=== PATIENT | female | born 1950 | race Caucasian/White ===

== ENCOUNTER 2017-11-19 21:48 | Inpatient (IN) | payer MEDICARE, OTHER ==
[2017-11-19 22:18] VITALS: BP 118/65
[2017-11-19] MEDS ORDERED: Maalox 30 mL Cup PO PRN (22:25)
[2017-11-19] MEDS ORDERED: Magnesium Hydroxide (MOM) 30 mL UDC PO PRN (22:25)
[2017-11-20] MEDS: Multivitamin Tab PO SCH (09:27)
[2017-11-20] MEDS: Dextromethorphan/Quinidine 20mg/10mg Cap PO SCH ×2 (09:27→16:15)
--- NOTE | 2017-11-20 12:14 | History & Physical ---
ADMIT DATE: 11/20/2017 PATIENT'S IDENTIFICATION: A 67-year-old female. REQUESTING PHYSICIAN: Juan José Bullard M.D., M.P.H. PRESENTING COMPLAINT: "I would like to be left alone." HISTORY SOURCE: Reviewing the chart, talking to the staff, as well as the patient's provided limited history. HISTORY OF PRESENT ILLNESS: A 67-year-old Turkish female with a longstanding history of depression, psychotic disorder, questionable dementia, resides at [facility], admitted at [facility] for altered mental status and poor p.o. intake where the patient was treated and the patient was evaluated by psychiatrist, the patient needed to have Geriatric Psychiatric Care. The patient is transferred to [facility] for further care for her psychotic illness. PAST MEDICAL HISTORY: Remarkable for: 1. Dementia. 2. DJD. 3. Anxiety, depression. 4. Questionable thyroid disease. MEDICATIONS AT HOME: The patient is taking Nuedexta, Colace, Aricept, ibuprofen, Remeron, Zyprexa, trazodone. ALLERGIES: The patient is not allergic to medication. 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 The patient denies any smoking cigarette, alcohol, or drug use. FAMILY MEDICAL HISTORY: Unremarkable for diabetes, hypertension, kidney disease. REVIEW OF SYSTEMS: The patient currently denies any chest pain, shortness of breath, palpitation, dizziness, nausea, vomiting, diarrhea, dysuria, hematuria, hematochezia, melena. No seizure or syncopal episode. No weight loss or weight gain. PHYSICAL EXAMINATION: GENERAL: The patient is a 67-year-old alert, awake, lying in the bed without any acute distress. VITAL SIGNS: Temperature 98, pulse is 74, respiratory rate 18, blood pressure 136/80. SKIN: Warm to touch. HEENT: Normocephalic, atraumatic. Extraocular muscles are intact. Tongue was pink and coated. Poor dentition noted. NECK: Supple, no JVD. No hepatojugular reflex. No lymphadenopathy, thyromegaly, or carotid bruit. HEART: Both heart sounds are regular. No S3, no S4, no murmur. CHEST AND LUNGS: Equal in expansion, no wheezing, no crackles. ABDOMEN: Soft. No guarding or rigidity. Liver and spleen palpable. No palpable mass. EXTREMITIES: No edema, no cyanosis. Good peripheral +1. No calf tenderness noted. NEUROLOGIC: Alert, awake, follows commands. Moving upper and lower extremity without difficulty, though the patient is very uncooperative to do complete neurological examination. AVAILABLE DIAGNOSTIC DATA: Performed has been reviewed at [facility]. CLINICAL IMPRESSIONS: 1. Anxiety, depression. 2. Dementia. 3. Questionable thyroid disease. 4. Degenerative joint disease. 5. History of recently treated for urinary tract infection. PLAN: 1. Psychotic evaluation and management defer to psychiatrist. 2. Recheck free T4, T3, TSH for evaluation of thyroid disorder and treat her accordingly. Continue other medication as prescribed. We will continue to follow this patient during the stay in the hospital. The patient will be provided fall precautions, general nursing care as well. I had discussed with care plan with assigned nurse as well. JOB# [id number]
--- NOTE | 2017-11-21 00:39 | Psychosocial Evaluation ---
DATE OF SERVICE: 11/20/2017 PSYCHIATRIC INITIAL EVALUATION AND MENTAL STATUS EXAM AGE: 67. SEX: Female. PHYSICIAN: Dr. Bullard. CHIEF COMPLAINT: 5150 hold for grave disability. HISTORY OF PRESENT ILLNESS: The patient was placed on 5150 hold in [facility]. The patient has history of schizoaffective disorder and the patient was evaluated in [facility] because of inability to care for herself. The patient is psychotic and paranoid and patient feels that there are bugs all over her body and she is unable to formulate any safe plan for herself care. Chart reviewed and patient interviewed and discussed the patient's condition with the staff and reviewed records and labs. The patient currently seems to be slightly sedated and sleepy since she was agitated earlier and had to be medicated. The patient was in irritable and angry mood and she was not able to care for herself or to provide any safe plan for her self-care. She feels that there are bugs all over her body. The patient was supposed to be on Zyprexa and trazodone but is questionable if the patient was compliant with taking her medications. PAST PSYCHIATRIC HISTORY: The patient has history of schizoaffective disorder. PAST MEDICAL HISTORY: The patient has no major medical problems. FAMILY PSYCHIATRIC HISTORY: Noncontributory. SOCIAL HISTORY: The patient has no history of alcohol or street drug use. No known legal issues or abuse issues. ALLERGIES: No known allergies. MENTAL STATUS EXAMINATION: The patient appears slightly older than her stated age. Sedated and sleepy most of the interview. The patient could not answer any of my questions because of being sedated and sleepy at the time. She did not answer question regarding hallucinations or delusions or suicide or homicide. The patient is sedated and unable to assess orientation or memory at this time because of her sedation and unable to complete mental status exam. ASSESSMENT: PRIMARY DIAGNOSES: Schizoaffective disorder, bipolar type, severe, with psychotic features. SECONDARY DIAGNOSIS: Rule out dementia, moderate. With psychotic features. TREATMENT PLAN: We will continue Zyprexa and trazodone same dose. We will monitor her behavior closely. We worked on her irritability and agitation. ESTIMATED LENGTH OF STAY: 5-7 days. THE PATIENT'S STRENGTHS AND WEAKNESSES: The patient's strength is not clear at this time. Weaknesses: Her ineffective coping. AFTER DISCHARGE PLAN: Outpatient treatments and followup will continue as an outpatient. CRITERIA FOR DISCHARGE: The patient will not be agitated or psychotic and will stabilize psychotropic medications and will establish outpatient treatment plans. [facility]# [id number]
[2017-11-21] MEDS: Multivitamin Tab PO SCH (08:22)
[2017-11-21] MEDS: Dextromethorphan/Quinidine 20mg/10mg Cap PO SCH ×2 (08:22→16:49)
[2017-11-22] MEDS: Dextromethorphan/Quinidine 20mg/10mg Cap PO SCH ×2 (09:48→17:13)
[2017-11-22] MEDS: Multivitamin Tab PO SCH (09:48)
--- NOTE | 2017-11-22 19:47 | Progress Notes ---
DATE: SUBJECTIVE: Chart reviewed and the patient interviewed. Also discussed the patient's condition with the staff and reviewed records and labs. The patient continued to be paranoid and she is still in a depressed mood. The patient also is still withdrawn. The patient is paranoid and afraid to go to her room. The patient also is forgetful and she still needs lots of redirections. Otherwise, the patient is compliant with taking her medications with no side effects of medications. Otherwise, the patient is refusing to take her and medications. ASSESSMENT: The patient is still confused and psychotic. TREATMENT PLAN: Encourage the patient to take her psychotropic medications, which are Zyprexa, trazodone, and Remeron. Also, encouraged the patient to interact more and at the same time, continue to monitor her behavior and her condition closely and continue to follow up. JOB# [id number]
--- NOTE | 2017-11-23 05:16 | Progress Notes ---
DATE: 11/22/2017 Chart reviewed and the patient interviewed. Also discussed the patient's condition with the staff and reviewed records and labs. The patient continued to be in a depressed mood and she is still paranoid. The patient also is fearful and she is still according to staff did not want to go to the room because of paranoia and fear but at the same time, the patient is slightly easier to redirect her. The patient today seems to be slightly sleepy, although she did not take her medications and refused to take her medications because of her fear and paranoia. ASSESSMENT: The patient is still paranoid and fearful. TREATMENT PLAN: Continue monitoring her behavior and condition closely and continue to work on her compliance with medications . JOB# [id number]
[2017-11-23] MEDS: Multivitamin Tab PO SCH (08:18)
[2017-11-23] MEDS: Dextromethorphan/Quinidine 20mg/10mg Cap PO SCH ×2 (08:18→17:05)
--- NOTE | 2017-11-23 16:19 | General Progress Note ---
Subjective - Review of Systems Service Date: 11/23/17 Subjective: Patient seen and examined chart reviewed afebrile Objective - Physical Exam Vitals and I&O: Vital Signs Temp 98.9 F 11/23/17 15:40 Pulse 79 11/23/17 15:40 Resp 18 11/23/17 15:40 BP 130/81 11/23/17 15:40 Pulse Ox 94 11/23/17 15:40 Intake & Output 11/22/17 11/23/17 11/23/17 18:59 06:59 18:59 Intake Total 100 240 Balance 100 240 Intake: Oral 100 240 Other: # Voids 2 1 Active Medications: Current Medications Acetaminophen (Tylenol) 650 mg PO Q4HR PRN PRN Reason: Mild Pain / Temp above 100 Stop: 01/18/18 22:24 Al Hydrox/Mg Hydrox/Simethicone (Maalox) 30 ml PO Q4HR PRN PRN Reason: GI DISTRESS Stop: 01/18/18 22:24 Dextromethorphan/Quinidine (Nuedexta 20mg-10mg) 1 cap PO BID [facility] Stop: 01/19/18 08:59 Last Admin: 11/23/17 08:18 Dose: 1 cap Docusate Sodium (Colace) 100 mg PO DAILY [facility] Stop: 01/19/18 08:59 Last Admin: 11/23/17 08:18 Dose: 100 mg Donepezil HCl (Aricept) 10 mg PO HS [facility] Stop: 01/19/18 20:59 Last Admin: 11/22/17 20:32 Dose: Not Given Ibuprofen (Motrin) 600 mg PO TID PRN PRN Reason: Nicotine Craving Stop: 01/18/18 22:41 Lorazepam (Ativan) 0.5 mg PO Q4HR PRN; Protocol PRN Reason: Anxiety/agitation Stop: 12/19/17 22:24 Last Admin: 11/23/17 08:18 Dose: 0.5 mg Magnesium Hydroxide (Milk Of Magnesia) 30 ml PO HS PRN PRN Reason: Constipation Mirtazapine (Remeron) 15 mg PO HS [facility] PRN Reason: Protocol Stop: 01/19/18 20:59 Last Admin: 11/22/17 20:31 Dose: Not Given Multivitamins/Vitamin C (Theragran) 1 tab PO DAILY [facility] Stop: 01/19/18 08:59 Last Admin: 11/23/17 08:18 Dose: 1 tab Olanzapine (Zyprexa) 7.5 mg PO BID [facility] PRN Reason: Protocol Stop: 01/19/18 08:59 Last Admin: 11/23/17 08:19 Dose: 7.5 mg Trazodone HCl (Desyrel) 50 mg PO HS PRN; Protocol PRN Reason: Psychosis Stop: 01/18/18 22:41 Zolpidem Tartrate (Ambien) 5 mg PO HS PRN PRN Reason: Insomnia Stop: 01/18/18 22:24 Cardiovascular: Regular rate Lungs: Clear to auscultation Assessment/Plan - Assessment Assessment: Dementia DJD Insomnia Mental health disorder - Plan Plan: Continue current treatment Monitor vitals Ibuprofen Psych follow up Nutritional Asmnt/Malnutr-PDOC - Dietary Evaluation Malnutrition Findings (Please click <Entered> for more info): Nutritional Asmnt/Malnutrition Start: 11/23/17 09: 58 Text: Status: Complete Freq: Document 11/23/17 09:58 JOANNE (Rec: 11/23/17 10:02 JOANNE ROSARIO- FNS1) Nutritional Asmnt/Malnutrition Patient General Information Diagnosis Psychosis Pertinent Medical Hx/Surgical Hx dementia, DJD, anxiety, depression, thyroid disorder Subjective Information Pt asleep in bed at time of visit Current Diet Order/ Nutrition Support Cardiac Pertinent Medications Maalox, MOM, theragran Pertinent Labs no labs as of 11/23 @ 0900 Nutritional Hx/Data Height 1.7 m Height (Calculated Centimeters) 170.2 Current Weight (lbs) 61.235 kg Weight (Calculated Kilograms) 61.2 Weight (Calculated Grams) 49992.0 Body Mass Index (BMI) 21.1 Weight Status Approriate GI Symptoms GI Symptoms None Food Allergies No Cultural/Ethnic/Sikhism Belief None noted Usual diet at home 2g Na Skin Integrity/Comment: flaquito score 16 Current %PO Poor (25-49%) Estimated Nutritional Goals BEE in Kcals: Using Current wt Calories/Kcals/Kg 25-30kcals/kg Kcals Calculated 1525-1830kcals/day Protein: Using Current wt Protein g/kg/kg Protein Calculated 61g/day Fluid: ml per MD Nutritional Problem 1. Problem Problem No nutrition diagnosis at this time Intervention/Recommendation Comments Recommend continuing Cardiac Diet Expected Outcomes/Goals Expected Outcomes/Goals PO intake >75% of meals
[2017-11-24] MEDS: Dextromethorphan/Quinidine 20mg/10mg Cap PO SCH ×2 (09:29→18:00)
[2017-11-24] MEDS: Multivitamin Tab PO SCH (09:31)
--- NOTE | 2017-11-24 18:49 | General Progress Note ---
Subjective - Review of Systems Service Date: 11/24/17 Subjective: Patient seen and examined patient stated " I am dying help me" Objective - Physical Exam Vitals and I&O: Vital Signs Temp 97.3 F 11/24/17 06:43 Pulse 93 11/24/17 06:43 Resp 18 11/24/17 06:43 BP 136/85 11/24/17 06:43 Pulse Ox 97 11/24/17 06:43 Intake & Output 11/23/17 11/24/17 11/24/17 18:59 06:59 18:59 Intake Total 240 120 150 Balance 240 120 150 Intake: Oral 240 120 150 Other: # Voids 1 3 3 # Bowel Movements 0 Active Medications: Current Medications Acetaminophen (Tylenol) 650 mg PO Q4HR PRN PRN Reason: Mild Pain / Temp above 100 Stop: 01/18/18 22:24 Al Hydrox/Mg Hydrox/Simethicone (Maalox) 30 ml PO Q4HR PRN PRN Reason: GI DISTRESS Stop: 01/18/18 22:24 Dextromethorphan/Quinidine (Nuedexta 20mg-10mg) 1 cap PO BID [facility] Stop: 01/19/18 08:59 Last Admin: 11/24/17 18:00 Dose: Not Given Docusate Sodium (Colace) 100 mg PO DAILY [facility] Stop: 01/19/18 08:59 Last Admin: 11/24/17 09:29 Dose: Not Given Donepezil HCl (Aricept) 10 mg PO HS [facility] Stop: 01/19/18 20:59 Last Admin: 11/23/17 20:28 Dose: 10 mg Ibuprofen (Motrin) 600 mg PO TID PRN PRN Reason: Nicotine Craving Stop: 01/18/18 22:41 Lorazepam (Ativan) 0.5 mg PO Q4HR PRN; Protocol PRN Reason: Anxiety/agitation Stop: 12/19/17 22:24 Last Admin: 11/23/17 08:18 Dose: 0.5 mg Magnesium Hydroxide (Milk Of Magnesia) 30 ml PO HS PRN PRN Reason: Constipation Mirtazapine (Remeron) 15 mg PO HS [facility] PRN Reason: Protocol Stop: 01/19/18 20:59 Last Admin: 11/23/17 20:28 Dose: 15 mg Multivitamins/Vitamin C (Theragran) 1 tab PO DAILY [facility] Stop: 01/19/18 08:59 Last Admin: 11/24/17 09:31 Dose: Not Given Olanzapine (Zyprexa) 7.5 mg PO BID [facility] PRN Reason: Protocol Stop: 01/19/18 08:59 Last Admin: 11/24/17 18:00 Dose: Not Given Trazodone HCl (Desyrel) 50 mg PO HS PRN; Protocol PRN Reason: Psychosis Stop: 01/18/18 22:41 Zolpidem Tartrate (Ambien) 5 mg PO HS PRN PRN Reason: Insomnia Stop: 01/18/18 22:24 Cardiovascular: Regular rate Lungs: Clear to auscultation Assessment/Plan - Assessment Assessment: Dementia DJD Insomnia Mental health disorder - Plan Plan: Continue current treatment Monitor vitals Ibuprofen Skin care Nursing care Asp precaution Fall precaution Psych follow up Nutritional Asmnt/Malnutr-PDOC - Dietary Evaluation Malnutrition Findings (Please click <Entered> for more info): Nutritional Asmnt/Malnutrition Start: 11/23/17 09: 58 Text: Status: Complete Freq: Document 11/23/17 09:58 JOANNE (Rec: 11/23/17 10:02 JOANNE MARLENE- FNS1) Nutritional Asmnt/Malnutrition Patient General Information Diagnosis Psychosis Pertinent Medical Hx/Surgical Hx dementia, DJD, anxiety, depression, thyroid disorder Subjective Information Pt asleep in bed at time of visit Current Diet Order/ Nutrition Support Cardiac Pertinent Medications Maalox, MOM, theragran Pertinent Labs no labs as of 11/23 @ 0900 Nutritional Hx/Data Height 1.7 m Height (Calculated Centimeters) 170.2 Current Weight (lbs) 61.235 kg Weight (Calculated Kilograms) 61.2 Weight (Calculated Grams) 75977.0 Body Mass Index (BMI) 21.1 Weight Status Approriate GI Symptoms GI Symptoms None Food Allergies No Cultural/Ethnic/Adventist Belief None noted Usual diet at home 2g Na Skin Integrity/Comment: flaquito score 16 Current %PO Poor (25-49%) Estimated Nutritional Goals BEE in Kcals: Using Current wt Calories/Kcals/Kg 25-30kcals/kg Kcals Calculated 1525-1830kcals/day Protein: Using Current wt Protein g/kg/kg Protein Calculated 61g/day Fluid: ml per MD Nutritional Problem 1. Problem Problem No nutrition diagnosis at this time Intervention/Recommendation Comments Recommend continuing Cardiac Diet Expected Outcomes/Goals Expected Outcomes/Goals PO intake >75% of meals
--- NOTE | 2017-11-24 21:15 | Progress Notes ---
DATE: 11/23/2017 SUBJECTIVE: Chart reviewed and the patient interviewed. Also discussed the patient's condition with the staff and reviewed records and labs. The patient continued to be , depressed. The patient also is still withdrawn. She also continued episodes of yelling and screaming, asking for help, but she does not know what exactly she needs. Also, her affect is flat. The patient also still seems to be needing attention. Otherwise, the patient is compliant with taking her medications, but she is still confused. ASSESSMENT: The patient is still confused and psychotic. TREATMENT PLAN: Continue to monitor her behavior and her condition closely. Also, continue adjusting psychotropic medications and followup. JOB# [id number]
--- NOTE | 2017-11-25 | Progress Notes ---
DATE: 11/24/2017 SUBJECTIVE: Chart reviewed and the patient interviewed. Also, discussed the patient's condition with the staff and reviewed records and labs. The patient continued to be delusional and she is still anxious. She also is still in angry mood. The patient also is still resisting care and she has difficulty expressing herself. She continued asking for "help, help." Otherwise, the patient denies any side effects of medications. ASSESSMENT: The patient is still agitated and is still delusional. TREATMENT PLAN: Continue to monitor her behavior and condition closely. Also, continue adjusting psychotropic medications and followup. [facility]# [id number]
[2017-11-25] MEDS: Multivitamin Tab PO SCH (09:56)
[2017-11-25] MEDS: Dextromethorphan/Quinidine 20mg/10mg Cap PO SCH ×2 (09:56→17:40)
--- NOTE | 2017-11-26 05:27 | Progress Notes ---
DATE: PATIENT IDENTIFICATION: A 67-year-old female. CHIEF COMPLAINT: "I am fine and wants to go home." SUBJECTIVE: The patient denies any chest pain, short of breath, palpitation, dizziness. PHYSICAL EXAMINATION: VITAL SIGNS: Temperature 97.2, pulse is 82, respiratory rate is 18, blood pressure 140/77. HEENT: No facial asymmetry. NECK: Supple, no JVD. HEART: Regular. CHEST AND LUNG: Equal in expansion, no wheezing, no crackles. ABDOMEN: Soft. No guarding, no rigidity. Bowel sounds are present. No palpable mass. EXTREMITIES: No edema, no cyanosis. Diffuse osteoarthritic changes noted. NEUROLOGIC: Limited, but nonfocal. CLINICAL IMPRESSION: 1. Dementia. 2. Degenerative joint disease. 3. Psychotic disorder. 4. History of urinary tract infection. 5. High risk for fall. PLAN: 1. Psych medication. 2. General nursing care. 3. Nutritional support. 4. Symptoms management. 5. Medication management. 6. Fall precautions. 7. Care plan reviewed. 8. Recheck thyroid function tests. JOB# [id number]
[2017-11-26] MEDS: Dextromethorphan/Quinidine 20mg/10mg Cap PO SCH ×5 (08:49→17:15)
[2017-11-26] MEDS: Multivitamin Tab PO SCH ×3 (08:50→11:18)
[2017-11-26] MEDS: OLANZapine 5 mg Oral Disintegrating Tab PO SCH ×3 (08:51→17:16)
--- NOTE | 2017-11-26 19:02 | Progress Notes ---
DATE: 11/25/2017 SUBJECTIVE: Chart reviewed and the patient interviewed. Also discussed the patient's condition with the staff and reviewed records and labs. The patient is still having episodes of yelling out for help and she is still confused. The patient also is still depressed and she told staff that" want to ." She also refused to take her medications and she is attention seeking. She also is still agitated and needs redirections at times. ASSESSMENT: The patient is still psychotic. TREATMENT PLAN: We will continue monitoring behavior and condition closely. Also, continue adjusting psychotropic medications and followup. Also, case mgr still working on placement issue. JOB# [id number]
--- NOTE | 2017-11-27 00:56 | Progress Notes ---
DATE: 11/26/2017 SUBJECTIVE: Chart reviewed and the patient interviewed. Also discussed the patient's condition with the staff and reviewed records and labs. The patient is still severely depressed and confused. The patient also is still isolative and withdrawn and interacting minimally with others. The patient also is still restless and she still wants to be left alone and minimal interaction and difficulty expressing herself or her feelings. The patient also still has not been able to talk about her feelings or herself. She also is unable to provide any safe plan for self-care. The patient has no explanation of why she is refusing to take the medications. ASSESSMENT: We will change Zyprexa to Zyprexa Zydis in a dose of 5 mg twice a day. Also, we will continue to work on her irritability and what seems to be depression and resisting care. Hopefully, the patient will start to take her medications regularly. Also, working with case supervisor in regard to placement issue and discharge plans. JOB# [id number]
--- NOTE | 2017-11-27 05:05 | Progress Notes ---
DATE: IDENTIFICATION: A 67-year-old female. SUBJECTIVE: The patient was seen and examined. The patient has no new event. PHYSICAL EXAMINATION: VITAL SIGNS: Temperature 98, pulse is 74, respiratory rate is 18, blood pressure 130/80. HEENT: No facial asymmetry. Poor dentition. NECK: Supple, no JVD. HEART: Regular, no murmur. CHEST: Lung equal in expansion. LUNGS: No wheezing, no crackles. ABDOMEN: Soft. No guarding or rebound. EXTREMITIES: No edema. CLINICAL IMPRESSION: 1. Dementia. 2. Hypothyroidism. 3. Degenerative joint disease. 4. Psychotic disorder. 5. High risk for fall. PLAN: 1. Psych medication. 2. General nursing care. 3. Symptoms management. 4. Medication management. 5. Follow lab. 6. We will follow this patient during the stay on as needed basis. JOB# [id number]
[2017-11-27] MEDS: Dextromethorphan/Quinidine 20mg/10mg Cap PO SCH ×2 (08:28→16:14)
[2017-11-27] MEDS: OLANZapine 5 mg Oral Disintegrating Tab PO SCH ×2 (08:28→16:14)
[2017-11-27] MEDS: Multivitamin Tab PO SCH (08:28)
[2017-11-28] MEDS: OLANZapine 5 mg Oral Disintegrating Tab PO SCH ×2 (09:12→17:08)
[2017-11-28] MEDS: Dextromethorphan/Quinidine 20mg/10mg Cap PO SCH ×2 (09:12→17:09)
[2017-11-28] MEDS: Multivitamin Tab PO SCH (09:12)
--- NOTE | 2017-11-28 23:11 | Progress Notes ---
DATE: IDENTIFICATION: A 67-year-old male. SUBJECTIVE: The patient was seen and examined, still unable to get blood tests for the patient's evaluation of her underlying hypothyroidism. The patient continues to remain agitated at time. The patient's care plan has been reviewed. The patient's psychiatrist notes has been reviewed. Zyprexa dose has been adjusted as well for her irritability and resisting the care. PHYSICAL EXAMINATION: VITAL SIGNS: Temperature 97.9, pulse 83, respiratory 18, blood pressure 130/70. HEENT: No facial asymmetry. NECK: Supple, no JVD. HEART: Regular, no murmur. CHEST: Equal in expansion, no wheezing, no crackles. ABDOMEN: Soft. No guarding, no rigidity. Bowel sounds heard. No palpable mass. EXTREMITIES: No edema. NEUROLOGIC: Alert, awake, follows commands. CLINICAL IMPRESSION: 1. Anxiety, depression. 2. Dementia. 3. Questionable thyroid disease. 4. Degenerative joint disease. PLAN: Psych medications adjusted. The patient became more cooperative, reevaluate this patient for hypothyroidism. Continue to provide nutritional support and fall precautions in general nursing care. Care plan has been discussed with staff. JOB# [id number]
--- NOTE | 2017-11-29 07:38 | Progress Notes ---
DATE: 11/27/2017 SUBJECTIVE: Chart reviewed and the patient interviewed. Also discussed the patient's condition with the staff and reviewed records and labs. The patient remains in a depressed mood. The patient also is still isolative and withdrawn. The patient continued to say "nobody cares about me." The patient also stated that she wants to . The patient also is confused and she thinks that there is a fire in her room. She also uncooperative and refused to have physical therapy and yesterday she only took one dose of Zyprexa. ASSESSMENT: The patient is still depressed and is still psychotic. TREATMENT PLAN: Continue monitoring her behavior and her condition closely. Also, continue working on her ineffective coping and continue to follow up. Also, working with case hardener in regard to placement issue and discharge plans. JOB# [id number]
--- NOTE | 2017-11-29 08:27 | Progress Notes ---
DATE: 11/28/2017 PSYCHIATRIC PROGRESS NOTE SUBJECTIVE: Chart reviewed and the patient interviewed. Also discussed the patient's condition with the staff and reviewed records and labs. The patient's affect has started brighter, but the patient is still in a depressed mood and is withdrawn. She also interacting minimally with others. The patient also still wants to be left alone and is still expressing herself with the desire that she wants to . She also had difficulty following and expressing herself all her feelings. On the other hand, the patient is more compliant with taking her medications with no side effects of medications. ASSESSMENT: The patient is still depressed and psychotic. TREATMENT PLAN: Continue monitoring her condition and her medications and continue to follow up. [facility]# [id number]
[2017-11-29] MEDS: Dextromethorphan/Quinidine 20mg/10mg Cap PO SCH ×2 (08:56→17:35)
[2017-11-29] MEDS: OLANZapine 5 mg Oral Disintegrating Tab PO SCH ×2 (08:57→17:35)
[2017-11-29] MEDS: Multivitamin Tab PO SCH (08:57)
--- NOTE | 2017-11-29 23:57 | Progress Notes ---
DATE: 11/29/2017 SUBJECTIVE: Case was discussed with staff of the patient and reviewed records. Covering for Dr. Bullard. This is a 67-year-old female who was admitted on a hold for grave disability on 11/19/2017. She was at [facility] with a history of schizoaffective disorder. The patient was evaluated in [facility] because of inability to care for herself. She was psychotic, paranoid, and felt that there are bugs all over her body, unable to formulate a safe plan for her self-care. PLAN: The patient's current medications include Nuedexta 1 tablet twice a day, Aricept 10 mg at bedtime, Ativan 0.5 mg every 4 hours as needed and Ibuprofen 600 mg 3 times a day as needed and Remeron 22.5 mg at bedtime as needed that was increased yesterday, olanzapine 5 mg twice a day as well as trazodone 50 mg at bedtime as needed for lack of sleep as well as Ambien 5 mg at bedtime as needed. The patient has been refusing to eat. She told the staff she wanted to . When I tried to talk to her, she was unable to participate in a meaningful conversation, continues to be delusional and paranoid, unable to care for herself. She is considered a high fall risk. No side effects to the medication, no nausea, no sedation, no extrapyramidal symptoms. We will continue to work the patient in group therapy, milieu therapy, and adjust medications as needed. JOB# [id number]
[2017-11-30] MEDS: OLANZapine 5 mg Oral Disintegrating Tab PO SCH ×3 (09:32→18:13)
[2017-11-30] MEDS: Dextromethorphan/Quinidine 20mg/10mg Cap PO SCH ×3 (09:32→18:12)
[2017-11-30] MEDS: Multivitamin Tab PO SCH ×2 (09:32→16:34)
--- NOTE | 2017-11-30 21:18 | Progress Notes ---
DATE: 11/30/2017 SUBJECTIVE: The patient was seen and evaluated. The patient's chart reviewed. This is Dr. Hope covering for Dr. Bullard. She was initially placed here on 5150 with a history of schizoaffective disorder, presented very psychotic and paranoid, believing that there are bugs all over her. Since the hospital course, the patient will be started on Colace, Aricept, mirtazapine 22.5 at nighttime and Zyprexa 5 mg p.o. b.i.d. Today on [id number] evaluation, does not engage in conversations, avoidant and refuses to be interviewed, easily suspicious. MENTAL STATUS EXAMINATION: Suspicious, irritable, agitated, disengaged in the interview. ASSESSMENT AND PLAN: Continues to be disorganized, psychotic. We will continue with the current medication regimen until reaching steady state, disorganization, residual psychotic and paranoid symptoms. JOB# [id number]
[2017-12-01] MEDS: Multivitamin Tab PO SCH (09:59)
[2017-12-01] MEDS: Dextromethorphan/Quinidine 20mg/10mg Cap PO SCH ×2 (10:00→17:39)
[2017-12-01] MEDS: OLANZapine 5 mg Oral Disintegrating Tab PO SCH ×2 (10:00→17:39)
--- NOTE | 2017-12-02 03:38 | Progress Notes ---
DATE: SUBJECTIVE: The patient was seen, chart reviewed, and discussed with staff. The patient continues to be actively psychotic, very paranoid with tactile and visual hallucinations of bugs all over her. She has, however, been compliant with her medications and has generally been redirectable. No p.r.n. medications required. PLAN: The patient continues to be very disorganized, psychotic with poor reality testing, so that she will require inpatient care center treatment. We will monitor the patient on a daily basis for response and titrate medicines as needed. JOB# [id number]
[2017-12-02] MEDS: Multivitamin Tab PO SCH (09:58)
[2017-12-02] MEDS: Dextromethorphan/Quinidine 20mg/10mg Cap PO SCH ×2 (09:58→17:00)
[2017-12-02] MEDS: OLANZapine 5 mg Oral Disintegrating Tab PO SCH ×2 (09:58→17:00)
--- NOTE | 2017-12-02 23:36 | Progress Notes ---
DATE: 12/02/2017 Case was discussed with staff of the patient, reviewed records. The staff reports, she is eating a little bit more, but still isolating herself, very depressed. Continues to have poor insight. Looking disheveled, internally preoccupied. She is also confused, unable to tell the date. No side effects to the medication, no sedation, no nausea, and no extrapyramidal symptoms. No change in medications since the weekend, so we will give it more time since she is taking that more regularly now. We will continue the patient in group therapy, milieu therapy, and adjust medications. JOB# [id number]
--- NOTE | 2017-12-03 02:20 | Progress Notes ---
DATE: 12/02/2017 SUBJECTIVE: The patient is seen and examined. ____. The patient is sitting in the chair, no new event. Discussed with nursing staff, no new event reported as well. PHYSICAL EXAMINATION: VITAL SIGNS: Temperature 97.5, pulse 54, respiratory rate is 18, and blood pressure is 128/56. HEENT: No facial asymmetry. NECK: Supple. No JVD. HEART: Regular. CHEST: Lungs equal in expansion. No expiratory wheezing. ABDOMEN: Soft. No guarding or rigidity. Bowel sounds are present. EXTREMITIES: No edema. NEUROLOGIC: Alert and awake. Following commands. CLINICAL IMPRESSION: 1. Dementia. 2. Anxiety, depression. 3. Degenerative joint disease. PLAN: 1. Dementia medication. 2. Symptoms management. 3. Medication management. 4. Fall precautions. 5. Continue current treatment plan as ordered. 6. Follow up labs. 7. Care plan discussed. JOB# [id number]
[2017-12-03] MEDS: Dextromethorphan/Quinidine 20mg/10mg Cap PO SCH (10:19)
[2017-12-03] MEDS: OLANZapine 5 mg Oral Disintegrating Tab PO SCH (10:38)
[2017-12-03] MEDS: Multivitamin Tab PO SCH (10:38)
--- NOTE | 2017-12-03 21:50 | Progress Notes ---
DATE: 12/03/2017 Case was discussed with staff of the patient. The patient has been isolating herself. Continues to be depressed, overwhelmed. She is compliant with the medication with no side effects, no sedation, no nausea, no extrapyramidal symptoms. Also, she is confused. I will be increasing Remeron dose to 30 mg a day to help with depression, anxiety, and we will continue to work with the patient in group therapy, milieu therapy, and adjust medications as needed. JOB# [id number]
[2017-12-04] MEDS: OLANZapine 5 mg Oral Disintegrating Tab PO SCH ×2 (08:27→16:45)
[2017-12-04] MEDS: Multivitamin Tab PO SCH (08:27)
[2017-12-04] MEDS: Dextromethorphan/Quinidine 20mg/10mg Cap PO SCH ×2 (08:27→16:45)
--- NOTE | 2017-12-05 01:16 | Progress Notes ---
DATE: 12/04/2017 Chart reviewed and the patient interviewed. Also discussed the patient's condition with the staff and reviewed records and labs. Staff reports that the patient has been talking to herself while in her room alone and talking to imaginary people. The patient also has been severely depressed and has been isolative and interacting minimally with others. She also has been selective in answering questions and also selective with the medications and yesterday, the patient refused to take her medications, but this morning, the patient said that she has been taking the Zyprexa and Remeron as prescribed. She is still during the interview has flat affect and kept staring at me without answering much of the questions. At the same time, she, today got out of her room and she was seen in the living room with other patients there. keno manager also is still working on placement issue and on discharge plans. JOB# [id number]
[2017-12-05] MEDS: Haldol Oral Sol.(concentrate) 10 mg/5 mL Udc PO SCH ×2 (11:28→17:09)
[2017-12-05] MEDS: Multivitamin Tab PO SCH (11:29)
[2017-12-05] MEDS: OLANZapine 5 mg Oral Disintegrating Tab PO SCH ×2 (11:29→17:09)
[2017-12-05] MEDS: Dextromethorphan/Quinidine 20mg/10mg Cap PO SCH ×2 (11:29→17:09)
--- NOTE | 2017-12-05 23:15 | Progress Notes ---
DATE: SUBJECTIVE: Chart reviewed and the patient interviewed. Also discussed the patient's condition with the staff and reviewed records and labs. "Turn off the lights." "Get out of here." The patient is still extremely angry and severely depressed. The patient also is suspicious and paranoid and she thinks that somebody is watching her from the window in her room. The patient also is still refusing to take medications and the paranoia is getting worse and has not been able to follow instructions or directions. She is also in angry and in irritable mood. Otherwise, the patient wants to be left alone and stay by herself in her room. ASSESSMENT: The patient is still depressed and psychotic. TREATMENT PLAN: We will start the patient on Haldol concentrate. Hopefully, it will help the patient with compliance and with her psychosis. Also, continue to monitor her condition closely. JOB# [id number]
[2017-12-06] MEDS: Multivitamin Tab PO SCH ×2 (09:46→09:57)
[2017-12-06] MEDS: OLANZapine 5 mg Oral Disintegrating Tab PO SCH ×3 (09:46→17:37)
[2017-12-06] MEDS: Dextromethorphan/Quinidine 20mg/10mg Cap PO SCH ×3 (09:46→17:37)
--- NOTE | 2017-12-06 16:34 | Discharge Summary ---
DATE OF DISCHARGE: 12/06/2017 DATE OF DISCHARGE: 12/06/2017. FINAL DIAGNOSES AND PRIMARY DIAGNOSES: Schizoaffective disorder, bipolar type, severe, with psychotic features. SECONDARY DIAGNOSES: Dementia, moderate, with psychotic features. REASON FOR HOSPITALIZATION: The patient was admitted to the hospital because of increased agitation and paranoia and irritability and also depressed and mood swings and the patient was hallucinating, thinking that there are bugs all over her body. HOSPITAL COURSE: The patient continued to do extremely irritable and agitated. The patient was started on Aricept as well as on Zyprexa and Remeron. The patient was refusing to take medications, ____ but after that she was taking medications on and off. Also, because of her paranoia, Haldol liquid was added. Thus, the patient more compliant with taking her medications, but after that the patient's Haldol was stopped. The patient continued to take her medications. [facility] accepted the patient and the patient was discharged there. The patient had no major medical problems while in the hospital. No major abnormal labs. AFTER DISCHARGE PLANS: The patient discharged from the hospital and the patient was discharged to [facility] with plans for followup there. EXPECTED OUTCOME AFTER DISCHARGE: Guarded because of the patient's noncompliance with medications and she is taking her medications on and off. [facility]# [id number]
--- NOTE | 2017-12-07 00:34 | Progress Notes ---
DATE: SUBJECTIVE: The patient is a 67-year-old female. The patient is seen and examined. The patient is extremely agitated, unable to get meaningful history from the patient, unable to get blood draw as well. The patient remained hemodynamically stable, discussed with nursing staff, and reviewing the nurse's note at this time. OBJECTIVE: VITAL SIGNS: Temperature 96.9, pulse is 86, respiratory rate 18, blood pressure 143/70. HEENT: No facial asymmetry. NECK: Supple, no JVD. HEART: Regular. CHEST: Lung equal in expansion, no wheezing, no crackles. ABDOMEN: Soft. No guarding, no rigidity. Bowel sounds are present. No palpable mass. EXTREMITIES: No edema, no cyanosis. CLINICAL IMPRESSION: 1. Psychotic disorder exacerbation, need a medication adjustment. 2. Alzheimer's type dementia. 3. Diffuse degenerative joint disease. 4. High risk for fall. 5. Possible hypothyroidism. The patient refused blood work on multiple occasions. PLAN: 1. Psychotic evaluation and management deferred to psychiatrist. 2. Symptoms management. 3. Medication management. 4. Once the patient is cooperative, repeat thyroid function test. 5. Care plan reviewed and discussed with staff. JOB# [id number]
[2017-12-07] MEDS: Multivitamin Tab PO SCH (08:17)
[2017-12-07] MEDS: Dextromethorphan/Quinidine 20mg/10mg Cap PO SCH ×2 (08:17→16:55)
[2017-12-07] MEDS: OLANZapine 5 mg Oral Disintegrating Tab PO SCH ×2 (08:17→16:55)
--- NOTE | 2017-12-07 21:23 | Progress Notes ---
DATE: 12/07/2017 Case discussed with staff of the patient, reviewed records. The patient was supposed to have been discharged yesterday; however, the discharge was canceled as the long term care social worker changed here today. The patient is refusing to eat, refusing to take medications, refusing to participate in any activities, so I talked to her, she was in bed and I explained to her that if she does not eat or does not take her medication, will be harder to find a place. She was upset that she was not discharged. She continues to be overwhelmed, continues to be unpredictable and impulsive. She is a high risk because of her medical condition as well as her medications. She is on Remeron 30 mg at bedtime. She is on ibuprofen 600 mg 3 times a day as needed, Aricept 10 mg at bedtime, Nuedexta 1 tablet twice a day, multivitamin tablet daily, Zyprexa 5 mg twice a day, trazodone 50 at bedtime as needed. No side effects of the medication, no sedation, no nausea; however, encouraged the patient to take her medication. She is depressed currently. No side effects to the medication, no sedation, no nausea. We will continue to work with the patient in group therapy, milieu therapy, and adjust medications as needed. JOB# [id number]
[2017-12-08] MEDS: Multivitamin Tab PO SCH (10:01)
[2017-12-08] MEDS: Dextromethorphan/Quinidine 20mg/10mg Cap PO SCH ×2 (10:01→17:19)
[2017-12-08] MEDS: OLANZapine 5 mg Oral Disintegrating Tab PO SCH ×2 (10:02→17:20)
--- NOTE | 2017-12-08 10:37 | Diagnostic Imaging Report ---
Portable chest x-ray Time: 1025 History: Dehydration Allowing for portable technique the heart size is normal. No focal pulmonary parenchymal processes. No hilar or mediastinal abnormalities. Impression: No acute abnormalities.
[2017-12-08] MEDS ORDERED: Haloperidol Lactate 5 mg/mL 1mL Vial IM ONE (11:20)
[2017-12-08] MEDS ORDERED: Haloperidol Lactate 5 mg/mL 1mL Vial ONE (11:20)
[2017-12-08 12:46] LABS: % EOSINOPHILS 0.2 % (0.0-5.0); % LYMPHOCYTES 11.2 % (20.0-50.0); % MONOCYTES 4.7 % (2.0-10.0); % NEUTROPHILS 83.9 % (40.0-80.0); HEMATOCRIT 43.7 % (41.0-60); HEMOGLOBIN 14.7 gm/dL (12-16); LYMPHOCYTE ABSOLUTE 1.7 Th/cmm (1.5-3.0); MEAN CELL VOLUME 92.8 fl (81-100); MEAN CORPUSCULAR HEMOGLOBIN 31.3 pg (27.0-31.0); MEAN CORPUSCULAR HGB CONC 33.7 pg (28.0-36.0); MEAN PLATELET VOLUME 7.6 fl; MONOCYTE ABSOLUTE 0.7 Th/cmm (0.3-1.0); NEUTROPHILE ABSOLUTE 12.4 Th/cmm (1.8-8.0); PLATELET COUNT 198 Th/cmm (150-400); RED BLOOD COUNT 4.71 Mil/cmm (3.80-5.20); RED CELL DISTRIBUTION WIDTH 12.1 % (11.5-20.0)
[2017-12-08 12:52] LABS: WHITE BLOOD COUNT 14.8 Th/cmm (4.8-10.8)
[2017-12-08 13:00] LABS: ALB/GLOB RATIO 1.2 (1.0-1.8); ALBUMIN 3.8 gm/dL (3.7-5.3); ALKALINE PHOSPHATASE 115 U/L (34-104); ANION GAP 12.7 (7.0-16.0); BILIRUBIN,TOTAL 0.3 mg/dL (0.3-1.0); BUN - UREA NITROGEN 29 mg/dL (7-25); CALCIUM SERUM 9.8 mg/dL (8.6-10.3); CARBON DIOXIDE 28.2 mEq/L (21.0-31.0); CHLORIDE 104 mEq/L (98-107); CREATININE - SERUM 0.6 mg/dL (0.6-1.2); GFR AFRICAN-AMERICAN > 60.0 ml/min (>90); GFR NON AFRICAN-AMERICAN > 60.0 ml/min; GLUCOSE 143 mg/dL (70-105); POTASSIUM SERUM 3.9 mEq/L (3.5-5.1); SGOT 16 U/L (13-39); SGPT/ALT 9 U/L (7-52); SODIUM SERUM 141 mEq/L (136-145); TOTAL PROTEIN,SERUM 6.9 gm/dL (6.0-8.3)
--- NOTE | 2017-12-08 18:18 | Progress Notes ---
DATE: 12/08/2017 IDENTIFICATION: A 67-year-old female. The patient seen and examined. The patient refused medications as well as not eating and drinking. After the patient received intramuscular Haldol, the patient was able to eat. Unable to get the blood test. The patient is currently very cooperative. Denies any chest pain, shortness of breath, palpitation or dizziness. PHYSICAL EXAMINATION: VITAL SIGNS: See nurse's notes. HEENT: Poor dentition. NECK: Supple, no JVD. HEART: Regular, no murmur. CHEST AND LUNGS: Equal in expansion, no wheezing, no crackles. ABDOMEN: Soft. EXTREMITIES: No edema. AVAILABLE DIAGNOSTIC DATA: White count of 14.8, hemoglobin 14.7, platelet count of 198. Chemistry panel: BUN 29, glucose of 143, alkaline phosphatase 115. CLINICAL IMPRESSION: 1. Psychotic disorder exacerbation. 2. Leukocytosis, reactive. 3. Elevated BUN secondary to prerenal azotemia. 4. Degenerative joint disease. 5. Osteoporosis. 6. High risk for fall. PLAN: 1. Recheck thyroid function for now. 2. We will watch leukocytosis. The patient has no signs and symptoms of infection. The patient to be provided nutritional support as well as adequate hydration, psych medication as per psychiatrist. The patient will be followed by us during her stay as well. JOB# [id number]
--- NOTE | 2017-12-08 21:14 | Progress Notes ---
DATE: 12/08/2017 SUBJECTIVE: Case was discussed with staff of the patient. She is very depressed, upset because she could not be discharged and since then she has is not eating. She has been dehydrated. Dr. Blue ordered some lab work, though she refused, so we had to give her some medication to help her become more lenient and more cooperative. When I tried to talk to her about it, she refused. She said she would do it and I tried to express to her my concern and the complications that could happen all to that and that also it may affect her ability to get placed in a facility when they find out that she is uncooperative. She continues to be unpredictable, impulsive, needing redirection. I will be increasing her Zyprexa dose to 7.5 mg at bedtime to help her become more reasonable and cooperative and help with her depression so far and we will continue to work with the patient in group therapy, milieu therapy, and adjust the medication as needed. [facility]# [id number]
[2017-12-09] MEDS: OLANZapine 5 mg Oral Disintegrating Tab PO SCH ×2 (08:41→16:48)
[2017-12-09] MEDS: Dextromethorphan/Quinidine 20mg/10mg Cap PO SCH ×2 (08:41→16:48)
[2017-12-09] MEDS: Multivitamin Tab PO SCH (08:41)
--- NOTE | 2017-12-09 10:05 | Progress Notes ---
DATE: SUBJECTIVE: The patient seen and examined. The patient is more cooperative. The patient's blood test was done yesterday and today her TSH was 1.26. The patient remained hemodynamically stable. The patient was able to eat as well. PHYSICAL EXAMINATION: Today's exam; VITAL SIGNS: Temperature 98.6, pulse 92, respiratory 18, and blood pressure 119/78. HEENT: No facial asymmetry. NECK: Supple, no JVD. HEART: Regular. CHEST: Equal in expansion, no wheezing, no crackles. ABDOMEN: Soft, no guarding or rigidity. Bowel sounds are present. No palpable mass. EXTREMITIES: No edema. CLINICAL IMPRESSION: 1. No clinical evidence of hypothyroidism. 2. Osteoporosis. 3. Degenerative joint disease. 4. Mild prerenal azotemia. 5. Psychotic disorder. 6. High risk for fall. PLAN: No treatment necessary for thyroid dysfunction. Continue to provide nutritional support. Fall precautions, general nursing care along with the psychiatrist followup. The patient will be followed by us during her stay on as needed basis. [facility]# [id number]
[2017-12-10 02:12] LABS: T3 FREE 2.3 pg/mL (2.0-4.4); T4 FREE 1.49 ng/dL (0.82-1.77)
--- NOTE | 2017-12-10 06:43 | Progress Notes ---
DATE: 12/09/2017 SUBJECTIVE: Chart reviewed and the patient interviewed. Also discussed the patient's condition with the staff and reviewed records and labs. The patient is still paranoid and delusional and depressed. She is withdrawn and interacting minimally with others. The patient yesterday was very oppositional to staff and the patient was agitated and she was given Haldol 1 mg and Ativan 1 mg ordered. The patient today is less paranoid and less delusional, but she still has episodes of being uncooperative and depressed. She also still wants to stay by herself in her room, was poor appetite. ASSESSMENT: The patient is less depressed and paranoid. TREATMENT PLAN: We will increase Zyprexa to 7.5 mg twice a day. Also, working with outpatient case manager in regard to discharge plans and placement issue since the patient has no place to go yet and it is difficult to find a place for the patient for placement. JOB# [id number]
--- NOTE | 2017-12-10 09:35 | Discharge Summary ---
DATE OF DISCHARGE: 12/09/2017 AGE: 67. SEX: Female. PHYSICIAN: Juan José Bullard MD, MPH. FINAL DIAGNOSES: PRIMARY DIAGNOSES: Major depression, severe, recurrent with psychotic features. REASON FOR HOSPITALIZATION: The patient was admitted to the hospital because of increased depression and refusal to eat or to cooperate with the staff and was paranoid and agitated. HOSPITAL COURSE: The patient continued to be paranoid and in irritable mood. The patient also wants to be left alone. Her appetite was poor and the patient was refusing to take medications. Later on, the patient agreed to take Zyprexa. The patient was crying and gradually crying spells was decreased. Zyprexa increased to 7.5 mg twice a day. The patient was not suicidal or homicidal. The patient was discharged from the hospital. Physical exam of the patient showed no major medical problems while the patient in the hospital. AFTER DISCHARGE PLANS: The patient discharged from the hospital with plans for outpatient treatment and followup. EXPECTED OUTCOME AFTER DISCHARGE: Guarded because of the patient's history of noncompliance with treatment, recommendations and discharge plans. JOB# [id number]
== END 2017-12-09 19:00 | DRG 885 ==
LOC: GERO 21:48
PROVIDERS: ADMIT Psychiatry & Neurology Psychiatry; ATTEND Psychiatry & Neurology Psychiatry
DX: F33.3 Major depressive disorder, recurrent, severe with psychotic symptoms (principal); F03.91 Unspecified dementia, unspecified severity, with behavioral disturbance; F41.9 Anxiety disorder, unspecified; M19.90 Unspecified osteoarthritis, unspecified site; G47.00 Insomnia, unspecified; F29 Unspecified psychosis not due to a substance or known physiological condition; D72.829 Elevated white blood cell count, unspecified; M81.0 Age-related osteoporosis without current pathological fracture; Z91.81 History of falling
CPT/HCPCS: 36415-UA; 71045-TC; 80053-TC; 84439-90; 84443-TC; 84479-90; 85025-TC; 97530; J1630; J2060; X3904; Z7610